=== PATIENT | female | born 1990 | race African-American/Black ===

== ENCOUNTER 2019-11-06 21:19 | Emergency (ER) | payer BC, OTHER ==
[~2019-11-06] VITALS: Ht 172.7 cm; Wt 57.0 kg
[~2019-11-06 21:19] MED LIST: PRENATAL VITAMINS
[2019-11-07] MEDS ORDERED: KETOROLAC 30MG/ML VIAL IV STA (01:03)
[2019-11-07] MEDS ORDERED: SODIUM CHLORIDE 0.9% 1,000 ML IV ONE (01:03)
[2019-11-07] MEDS ORDERED: BACITRACIN ZINC OINT UDPKT TOP ONE (01:15)
[2019-11-07] MEDS ORDERED: DIAZEPAM 2 MG TABLET PO ONE (01:15)
[2019-11-07] MEDS ORDERED: LIDOCAINE HCL/PF 1% 10 MG/ML 5ML VIAL IJ ONE (01:15)
[2019-11-07] MEDS ORDERED: METOCLOPRAMIDE HCL 10MG/2ML VIAL IV ONE (01:15)
[2019-11-07 01:44] LABS: BASOPHILS % 0.1 % (0.0-2.0); EOSINOPHILS % 0.1 % (0.0-5.0); HEMATOCRIT. 27.5 % (36.0-48.0); HEMOGLOBIN. 8.1 g/dL (12.0-16.0); LYMPHOCYTES % 8.5 % (20.0-50.0); MEAN CORPUSCULAR HEMOGLOBIN 16.2 pg (28.0-32.0); MEAN CORPUSCULAR VOLUME 55.1 fL (81.0-99.0); MEAN PLATELET VOLUME 8.8 fl (7.4-10.4); NEUTROPHILS % 83.3 % (40.0-76.0); PLATELET 199 x1000/uL (130-400); RED CELL DISTRIBUTION WIDTH 20.6 % (11.6-14.6)
[2019-11-07 01:46] LABS: PLATELET ESTIMATE NORMAL
[2019-11-07 01:50] LABS: CHLORIDE 104 mEq/L (98-107)
[2019-11-07 04:39] LABS: CLARITY URINE CLEAR (CLEAR); COLOR URINE YELLOW (YELLOW); KETONES URINE TRACE (NEGATIVE); LEUKOCYTE ESTERASE URINE 1+ (NEGATIVE); NITRITE URINE NEGATIVE (NEGATIVE); OCCULT BLOOD URINE 2+ (NEGATIVE); PH URINE 6.5 (4.5-8.0); PROTEIN URINE TRACE (NEGATIVE); SPECIFIC GRAVITY URINE 1.023 (1.005-1.030)
[2019-11-07 05:36] VITALS: BP 117/54
== END 2019-11-07 05:38 | disposition home or self-care (01) ==
LOC: ER 21:19
DX: M79.10 Myalgia, unspecified site (principal); L02.214 Cutaneous abscess of groin; D50.9 Iron deficiency anemia, unspecified; V43.52XA Car driver injured in collision with other type car in traffic accident, initial encounter; Y93.89 Activity, other specified; Y92.488 Other paved roadways as the place of occurrence of the external cause
CPT/HCPCS: 10060; 36415; 80053; 81003; 85025; 96374; 96375; 99283; A4217; J1885; J2765; J3490; J7030; Z7610

== ENCOUNTER 2019-11-11 03:24 | Emergency (ER) | payer BC, OTHER ==
[~2019-11-11] VITALS: Ht 172.7 cm; Wt 57.0 kg
[2019-11-11 07:09] VITALS: BP 111/69
== END 2019-11-11 07:14 | disposition home or self-care (01) ==
LOC: ER 03:24
DX: L02.214 Cutaneous abscess of groin (principal)
CPT/HCPCS: 99283